=== PATIENT | male | born 1955 | race Caucasian/White ===

== ENCOUNTER 2023-08-27 17:35 | Emergency (ER) | payer OTHER ==
[~2023-08-27] VITALS: Ht 177.8 cm; Wt 64.4 kg
[2023-08-27] MEDS ORDERED: TETANUS AND DIPHTHERIA TOX IM ONE (17:50)
== END 2023-08-27 19:24 | disposition home or self-care (01) ==
LOC: ER 17:35
DX: S61.012A Laceration without foreign body of left thumb without damage to nail, initial encounter (principal); Z23 Encounter for immunization; V18.4XXA Pedal cycle driver injured in noncollision transport accident in traffic accident, initial encounter; Y93.55 Activity, bike riding
CPT/HCPCS: 12002; 73130; 90471; 99283-25